=== PATIENT | female | born 2005 | race African-American/Black ===

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

== ENCOUNTER → 2024-01-26 | Emergency (ER) | payer OTHER ==
[~2024-01-26] VITALS: Ht 162.6 cm; Wt 45.4 kg
[~2024-01-26] MED LIST changes: +FLUCONAZOLE100 MG PO; +MACROBID100 M1 PO; +METHOCARBAMOL500 M1 PO; +NAPROXEN250 MG PO
[2024-01-26 08:18] LABS: BILIRUBIN Negative (Negative); BLOOD Negative (Negative); CLARITY Clear (Clear); COLOR Yellow (Yellow); GLUCOSE Negative (Negative); KETONE 2+ (Negative); LEUKO ESTERASE 2+ (Negative); NITRITE Negative (Negative); SPECIFIC GRAVITY 1.025 (1.001-1.030)
[2024-01-26 08:28] LABS: BACTERIA 2+; MUCOUS 1+; WBC 31-40 wbc/hpf (0-5)
== END ==
LOC: ED 07:16
PROVIDERS: Internal Medicine
DX: N39.0 Urinary tract infection, site not specified (principal)

== ENCOUNTER 2024-10-13 20:03 | Emergency (ER) | payer OTHER ==
[~2024-10-13] VITALS: Ht 167.6 cm; Wt 54.4 kg
[2024-10-13 20:36] LABS: BILIRUBIN Negative (Negative); BLOOD 3+ (Negative); CLARITY Clear (Clear); COLOR Yellow (Yellow); GLUCOSE Negative (Negative); KETONE 1+ (Negative); LEUKO ESTERASE Negative (Negative); NITRITE Negative (Negative); PH 5.5 (4.5-8.0); SPECIFIC GRAVITY 1.025 (1.001-1.030)
[2024-10-13 20:40] LABS: BASO # 0.1 10*3/uL (0.0-0.1); BASO % 0.8 % (0.0-1.0); EOS # 0.3 10*3/uL (0.0-0.4); EOS % 3.9 % (1.0-4.0); HEMATOCRIT 31.9 % (37.0-47.0); MEAN CELL VOLUME 79.4 fl (81.0-99.0); MEAN CORPUSCULAR HGB 24.6 pg (27.0-31.0); MEAN PLATELET VOLUME 9.7 fl (9.6-12.3); MONO # 0.7 10*3/uL (0.1-1.0); NEUT # 4.1 10*3/uL (2.3-7.9); NEUT % 54.8 % (47.0-73.0); PLATELET COUNT AUTOMATED 319 10*3/uL (130-400); RED BLOOD COUNT 4.02 10*6/uL (4.10-5.10); RED CELL DISTRI WIDTH 15.3 % (0-14.5); WHITE BLOOD COUNT 7.5 10*3/uL (4.8-10.8)
[2024-10-13 20:44] LABS: BACTERIA 2+; RBC TNTC rbc/hpf (0-2)
[2024-10-13 21:01] LABS: ALKALINE PHOSPHATASE 57 U/L (46-116); BUN 12 mg/dl (9-23); CHLORIDE 106 mmol/L (98-107); LIPASE 39 U/L (12-53); POTASSIUM 3.5 mmol/L (3.4-5.1); SGPT/ALT 9 U/L (5-49)
[2024-10-13] MEDS ORDERED: CIPRO500 MG PO (21:30)
[2024-10-13] MEDS ORDERED: MIRALAX POWDER17 G1 PO (21:30)
== END 2024-10-13 21:35 | disposition home or self-care (01) ==
LOC: ED 20:03
PROVIDERS: Internal Medicine
DX: N39.0 Urinary tract infection, site not specified (principal); K59.00 Constipation, unspecified; R11.2 Nausea with vomiting, unspecified; Z87.891 Personal history of nicotine dependence

== ENCOUNTER 2025-05-11 18:35 | Emergency (ER) | payer SELFPAY ==
[~2025-05-11] VITALS: Ht 162.5 cm; Wt 53.1 kg
[~2025-05-11 18:35] MED LIST changes: +CIPRO500 MG PO; +MIRALAX POWDER17 G1 PO
== END 2025-05-11 19:28 | disposition home or self-care (01) ==
LOC: ED 18:35
DX: O9A.211 Injury, poisoning and certain other consequences of external causes complicating pregnancy, first trimester (principal); S30.1XXA Contusion of abdominal wall, initial encounter; Z79.899 Other long term (current) drug therapy; Z3A.08 8 weeks gestation of pregnancy; W50.0XXA Accidental hit or strike by another person, initial encounter; Y93.89 Activity, other specified; Y92.128 Other place in nursing home as the place of occurrence of the external cause; Y99.8 Other external cause status

== ENCOUNTER 2025-08-01 06:23 | Emergency (ER) | payer OTHER ==
[~2025-08-01] VITALS: Ht 157.4 cm; Wt 54.4 kg
[2025-08-01] MEDS ORDERED: ACETAMINOPHEN 325 MG TAB PO ONE (06:45)
[2025-08-01 07:17] LABS: BILIRUBIN Negative (Negative); BLOOD 3+ (Negative); CLARITY Cloudy (Clear); COLOR Yellow (Yellow); KETONE 1+ (Negative); LEUKO ESTERASE 1+ (Negative); NITRITE Negative (Negative); PH 6.0 (4.5-8.0); SPECIFIC GRAVITY 1.025 (1.001-1.030); UROBILINOGEN 1.0 E.U./dl (0.0-1.0)
[2025-08-01 08:04] LABS: BACTERIA 3+; EPITHELIAL CELLS 21-30; MUCOUS 1+; RBC TNTC rbc/hpf (0-2)
[2025-08-01] MEDS ORDERED: CEPHALEXIN500 M1 PO (08:16)
== END 2025-08-01 08:25 | disposition home or self-care (01) ==
LOC: ED 06:23
PROVIDERS: Emergency Medicine
DX: O23.42 Unspecified infection of urinary tract in pregnancy, second trimester (principal); N39.0 Urinary tract infection, site not specified; Z3A.20 20 weeks gestation of pregnancy